=== PATIENT | male | born 1960 | race Caucasian/White ===

== ENCOUNTER 2018-03-10 02:24 | Emergency (ER) | payer MEDICAID | END 2018-03-10 02:36 | LOC: ED 02:30 | DX: F10.120 Alcohol abuse with intoxication, uncomplicated (principal); Z72.89 Other problems related to lifestyle; I10 Essential (primary) hypertension; E11.9 Type 2 diabetes mellitus without complications; F17.200 Nicotine dependence, unspecified, uncomplicated | CPT/HCPCS: 99283; 99406 ==